=== PATIENT | male | born 1950 | race Caucasian/White ===

== ENCOUNTER 2016-08-29 17:03 | Emergency (ER) | payer MEDICARE, BC ==
[2016-08-29] MEDS ORDERED: Morphine 10 MG/ML Syringe IM ONE (17:08)
[2016-08-29 17:30] VITALS: BP 157/68
[2016-08-29] MEDS ORDERED: Morphine 4 MG/ML Syringe IM ONE (17:44)
[2016-08-29] MEDS ORDERED: Acetaminophen/HYDROcodone 325-5 MG Tab PO ONE (18:51)
--- NOTE | 2016-08-31 10:43 | CR ---
INDICATION: Fell. RIGHT ANKLE: Frontal and lateral views of the right ankle revealed very minimal hypertrophic change at the medial intercondylar spine and off the anteroposterior aspects of the tibia, compatible with minimal posttraumatic osteoarthritis. The ankle mortise was otherwise unremarkable and intact, with no fracture or dislocation identified. MTDD
--- NOTE | 2016-08-31 10:44 | CR ---
INDICATION: Fell. RIGHT WRIST: Frontal and lateral views of the right wrist revealed a comminuted fracture of the distal radial metaphysis which extends through the lateral portion of the radial joint surface and extends both transversely and longitudinally through the proximal metaphysis of the radius and also fracture lines extending into the distal shaft of the radius. Anterior angulation is moderate at the fracture site. Slight posterior offset of the distal radial fracture fragments are noted. The ulnar styloid appears to be grossly intact on these images. IMPRESSION: Comminuted Colles' fracture with deformity. MTDD
--- NOTE | 2016-08-31 10:45 | CR ---
INDICATION: Fell. RIGHT SHOULDER: Two views of the right shoulder were obtained and revealed deformity of the proximal humeral metaphysis compatible with a fracture site through the surgical neck area. There appears to be anterior offset of the distal fracture fragment of up to 1.5 to 2 cm. This would appear to be an acute fracture site. The glenohumeral joint is not well seen. There appears to be irregularity of the humeral head, raising question of either additional previous trauma and/or degenerative change. This should be correlated clinically. Pathologic fracture would be a consideration. IMPRESSION: Proximal humeral fracture with deformity. Question the possibility of pathologic fracture or additional previous trauma - correlate clinically. MTDD
--- NOTE | 2016-08-31 10:46 | CR ---
INDICATION: Fall. CHEST: An AP upright view of the chest was obtained and revealed the heart to be normal in size and shape. There appears to be some minimal calcification in the arch of the aorta. A definite active infiltrate, effusion, contusion, or pneumothorax was not identified. IMPRESSION: No definite acute process. MTDD
--- NOTE | 2016-08-31 17:37 | ER ---
DATE SEEN: 08/29/2016 HISTORY OF PRESENT ILLNESS: The patient is a 66-year-old gentleman, who presents to the emergency department with pain in his right arm. He states he was trimming trees and was on a ladder, fell about 5 feet off the ladder landing on his right side primarily. Complains of pain in his right shoulder, right wrist, right ankle. Denies any pain in his abdomen. He says he did not hit his head or have any loss of consciousness. He [place] about [place] out. He was able to walk into the house and called for help and had a friend drive him in. He has not taken anything for pain. He does have a history of right rotator cuff repair in the past. MEDICATIONS: 1. Norvasc. 2. Lisinopril. 3. Dapsone. ALLERGIES: Penicillins. PAST MEDICAL HISTORY: Right rotator cuff surgery, hypertension. REVIEW OF SYSTEMS: CONSTITUTIONAL: No nausea, vomiting, fevers, or chills. RESPIRATORY: No shortness of breath. CARDIOVASCULAR: No chest pain. PHYSICAL EXAMINATION: VITAL SIGNS: Temperature is 36.9, pulse 94, blood pressure 157/68, respiratory rate 18, 98% on room air. GENERAL: He is in mild distress. LUNGS: Clear to auscultation bilaterally. HEART: Regular rhythm. No rubs, gallops, or murmurs. ABDOMEN: Soft, nontender, nondistended. MUSCULOSKELETAL: Hips are nontender to palpation. Knees are nontender to palpation. Has tenderness to palpation in his right ankle over the area of the anterior talofibular ligament. No obvious deformity. No tenderness to palpation at the 5th metatarsal. His right wrist has tenderness at the distal radius. Limited range of motion because of the pain. Right shoulder has pain at the proximal humerus, unable to go through range of motion secondary to the pain. EMERGENCY DEPARTMENT COURSE: The patient received 6 mg of morphine, followed by 4 mg of morphine. The pain went down from a 10 to 5. X-rays of his right shoulder show proximal humerus fracture. X-rays of his right wrist show a distal radius fracture. His ankle is negative for a fracture. PROCEDURE: The patient was placed in a splint Orthoglass 3 inch, short arm, right side as well as sling right arm. ASSESSMENT: 1. Right distal radius fracture. 2. Right proximal humeral fracture. 3. Fall. 4. Right ankle sprain. PLAN: [place] take 1 tablet every 4 hours for pain. Instructed to follow up with Orthopedics, Wednesday. Stay in splint and sling until seen in followup. /[id number] JESSEE/ABDIRIZAK
== END 2016-08-29 18:55 | disposition home or self-care (01) ==
LOC: FB.ED 17:03
DX: S52.531A Colles' fracture of right radius, initial encounter for closed fracture (principal); S42.201A Unspecified fracture of upper end of right humerus, initial encounter for closed fracture; S93.401A Sprain of unspecified ligament of right ankle, initial encounter; I10 Essential (primary) hypertension; Z88.0 Allergy status to penicillin; W11.XXXA Fall on and from ladder, initial encounter
CPT/HCPCS: 29125; 71010; 73030; 73100; 73600; 96372; 99284; A9270; J2270; 29105

== ENCOUNTER 2016-09-01 08:51 | Day surgery (SDC) | payer MEDICARE, BC ==
[~2016-09-01 08:51] MED LIST: Lactated Ringers 1,000 ML IV SCH
== END 2016-09-01 09:50 | disposition home or self-care (01) ==
LOC: FB.SDS 08:51
PROVIDERS: ATTEND Orthopaedic Surgery
DX: G56.01 Carpal tunnel syndrome, right upper limb (principal); Z53.8 Procedure and treatment not carried out for other reasons; Z88.0 Allergy status to penicillin; Z91.040 Latex allergy status